=== PATIENT | female | born 1985 | race Caucasian/White ===

== ENCOUNTER 2018-07-05 15:56 | Emergency (ER) | payer OTHER ==
--- NOTE | 2018-07-05 16:45 | EDPHY ---
H & P Time Seen by Provider: 07/05/18 16:44 HPI/ROS: CHIEF COMPLAINT: Abdominal pain HISTORY OF PRESENT ILLNESS: Patient is 6 weeks , 5 para 3. No previous abdominal surgeries. Started having right upper quadrant and right lower quadrant pain yesterday which is described as cramping and waxing and waning. She primarily feels it under her ribs on the right side, but more also has pain on the lower abdomen. No associated urinary symptoms or fever. No injury or trauma. No vaginal bleeding. Not better or worse with anything. REVIEW OF SYSTEMS: Eye: no change in vision ENT: no sore throat Cardiac: no chest pain or syncope Pulmonary: no cough or SOB Abdomen: HPI Musculoskeletal: no back pain Skin: no rash Neuro: no headache Constitutional: no fever : no urinary symptoms A comprehensive 10 point review of systems is otherwise negative aside from elements mentioned in the history of present illness. PAST MEDICAL HISTORY: 5 para 3; A positive in [employer] Social history: here with her General Appearance: Alert and conversant, cooperative. Eyes: No scleral icterus. ENT, Mouth: Normal mucous membranes. Respiratory: Normal respiratory effort, breath sounds equal, lungs are clear to auscultation. Cardiovascular: Regular rate and rhythm. Gastrointestinal: Right lower quadrant and left lower quadrant tenderness without rebound or guarding, negative Tran sign. Neurological: Alert, face symmetric, normal motor and sensory in extremities. Skin: Warm and dry, no rashes. Musculoskeletal: No peripheral edema. Psychiatric: Not agitated. Emergency Department course/MDM: Pulmonary embolism was considered but I think it is unlikely with no chest pain or shortness of breath, symptoms in the abdomen, 98% oxygen saturation, not pleuritic. Plan for ultrasound of ovary, appendix, gallbladder and labs. Urinalysis negative. 1813: 6+1 IUP Deirdre, 2.6cm L side subchorionic hemorrhage, no torsion. US shows normal GB, no abnormal in RLQ Leonard at 1816. 1900: Results discussed, she is eating soup and feels well. I think it is reasonable that her subchorionic hemorrhage is likely causing her symptoms. I think appendicitis at this time is unlikely. Smoking Status: Never smoked Constitutional: Initial Vital Signs Temperature (C) 37.2 C 07/05/18 16:00 Heart Rate 91 07/05/18 16:00 Respiratory Rate 16 07/05/18 16:00 Blood Pressure 122/73 H 07/05/18 16:00 O2 Sat (%) 98 07/05/18 16:00 O2 Delivery Mode Room Air Allergies/Adverse Reactions: cephalexin monohydrate [From Keflex] Allergy (Severe, Verified 07/05/18 15:59) Home Medications: Medication Instructions Recorded Sudhir Padilla 10-10 mg Tablet 07/05/18 07/05/18 Medical Decision Making - Diagnostics Imaging Results: Imaging Impressions Abdomen Ultrasound 07/05/18 16:53 Impression: Normal study. Results called to Dr. Kaz Menendez at 6:15 PM. Abdomen Ultrasound 07/05/18 16:53 Impression: No indirect sonographic evidence for appendicitis. Results called to Dr. Menendez at 6:15 PM. Obstetrics Ultrasound 07/05/18 16:53 Impression: 1. There is a single viable intrauterine gestation with size concordant with menstrual dating. 2. There is a 2.6 cm left-sided subchorionic hemorrhage. 3. Normal appearance of the ovaries. There is no adnexal mass, torsion, or free fluid. Findings were discussed with KAZ MENENDEZ MD at 18:12, on 07/05/2018. Imaging: Discussed imaging studies w/ photo tube assembler Radiologist - Data Points Laboratory Results: Laboratory Results 07/05/18 16:37 07/05/18 16:37 07/05/18 07/05/18 07/05/18 16:37 16:37 16:05 WBC 9.51 10^3/uL H 10^3/uL (3.80-9.50) RBC 4.97 10^6/uL 10^6/uL (4.18-5.33) Hgb 14.3 g/dL g/dL (12.6-16.3) Hct 43.1 % % (38.0-47.0) MCV 86.7 fL fL (81.5-99.8) MCH 28.8 pg pg (27.9-34.1) MCHC 33.2 g/dL g/dL (32.4-36.7) RDW 12.7 % % (11.5-15.2) Plt Count 191 10^3/uL 10^3/uL (150-400) MPV 10.2 fL fL (8.7-11.7) Neut % (Auto) 67.9 % % (39.3-74.2) Lymph % (Auto) 24.3 % % (15.0-45.0) Coffee % (Auto) 5.9 % % (4.5-13.0) Eos % (Auto) 1.4 % % (0.6-7.6) Baso % (Auto) 0.2 % L % (0.3-1.7) Nucleat RBC Rel Count 0.0 % % (0.0-0.2) Absolute Neuts (auto) 6.46 10^3/uL 10^3/uL (1.70-6.50) Absolute Lymphs (auto) 2.31 10^3/uL 10^3/uL (1.00-3.00) Absolute Monos (auto) 0.56 10^3/uL 10^3/uL (0.30-0.80) Absolute Eos (auto) 0.13 10^3/uL 10^3/uL (0.03-0.40) Absolute Basos (auto) 0.02 10^3/uL 10^3/uL (0.02-0.10) Absolute Nucleated RBC 0.00 10^3/uL 10^3/uL (0-0.01) Immature Gran % 0.3 % % (0.0-1.1) Immature Gran # 0.03 10^3/uL 10^3/uL (0.00-0.10) Sodium 136 mEq/L mEq/L (135-145) Potassium 3.6 mEq/L mEq/L (3.5-5.2) Chloride 103 mEq/L mEq/L (97-110) Carbon Dioxide 23 mEq/l mEq/l (22-31) Anion Gap 10 mEq/L mEq/L (6-14) BUN 14 mg/dL mg/dL (7-23) Creatinine 0.5 mg/dL L mg/dL (0.6-1.0) Estimated GFR > 60 Glucose 114 mg/dL H mg/dL (70-100) Calcium 9.4 mg/dL mg/dL (8.5-10.4) Total Bilirubin 0.3 mg/dL mg/dL (0.1-1.4) Conjugated Bilirubin 0.3 mg/dL mg/dL (0.0-0.5) Unconjugated Bilirubin 0.0 mg/dL mg/dL (0.0-1.1) AST 35 IU/L IU/L (14-46) ALT 60 IU/L H IU/L (9-52) Alkaline Phosphatase 58 IU/L IU/L (38-126) Total Protein 7.2 g/dL g/dL (6.3-8.2) Albumin 4.3 g/dL g/dL (3.5-5.0) Lipase 92 IU/L IU/L (23-300) Beta HCG, Quant 61565.00 mIU/mL H mIU/mL (0.00-4.83) Urine Color YELLOW Urine Appearance HAZY Urine pH 6.0 (5.0-7.5) Ur Specific [place] 1.023 (1.002-1.030) Urine Protein NEGATIVE (NEGATIVE) Urine Ketones NEGATIVE (NEGATIVE) Urine Blood NEGATIVE (NEGATIVE) Urine Nitrate NEGATIVE (NEGATIVE) Urine Bilirubin NEGATIVE (NEGATIVE) Urine Urobilinogen NEGATIVE EU EU (0.2-1.0) Ur Leukocyte Esterase NEGATIVE (NEGATIVE) Urine Glucose NEGATIVE (NEGATIVE) Departure - Departure Disposition: Home, Routine, Self-Care Clinical Impression: Subchorionic hemorrhage Qualifiers: Fetus number: single or unspecified fetus Trimester: first trimester Qualified Code(s): O41.8X10 - Other specified disorders of amniotic fluid and membranes, first trimester, not applicable or unspecified Condition: Good Instructions: Subchorionic Hemorrhage (ED) Additional Instructions: you had a 2.5 cm subchorionic hemorrhage on ultrasound Referrals: Danika Brewer PA [Primary Care Provider] - As per Instructions
[2018-07-05 17:01] LABS: PLATELET COUNT 191 10^3/uL (150-400)
[2018-07-05 19:25] VITALS: BP 107/73
== END 2018-07-05 19:25 | disposition home or self-care (01) ==
DX: O41.8X10 Other specified disorders of amniotic fluid and membranes, first trimester, not applicable or unspecified (principal); Z3A.01 Less than 8 weeks gestation of pregnancy

== ENCOUNTER 2018-07-09 17:22 | Emergency (ER) | payer OTHER ==
[2018-07-09] MEDS ORDERED: NS 1,000 ML IV ONE ×2 (17:41)
--- NOTE | 2018-07-09 17:43 | EDPHY ---
H & P Time Seen by Provider: 07/09/18 17:36 HPI/ROS: CHIEF COMPLAINT: Hyperemesis gravidarum HISTORY OF PRESENT ILLNESS: Patient is a 33-year-old female with 1 miscarriage at 8 weeks. She is currently 7 weeks gestational age. She has had trouble with hyperemesis gravidarum with her last 3 pregnancies. She is currently on diclegis and followed by her OBGYN. She states that she has gotten behind this week and has not been able to stay well-hydrated. She had a near syncopal episode today when getting out of a warm bath. No diarrhea. No fever. No traumatic injury. No vaginal bleeding or discharge. She states that she has had concentrated urine and today had a small amount of pain with urination. No abdominal pain or tenderness. Severity: Moderate Modifying factors: None REVIEW OF SYSTEMS: Constitutional: denies: chills, fever, recent illness, recent injury EENTM: denies: blurred vision, double vision, nose congestion Respiratory: denies: cough, shortness of breath Cardiac: denies: chest pain, irregular heart rate, lightheadedness, palpitations Gastrointestinal/Abdominal: See HPI Genitourinary: See HPI Musculoskeletal: denies: joint pain, muscle pain Skin: denies: lesions, rash, jaundice, bruising Neurological: denies: headache, numbness, paresthesia, tingling, dizziness, weakness Hematologic/Lymphatic: denies: blood clots, easy bleeding, easy bruising Immunologic/allergic: denies: HIV/AIDS, transplant 10 systems reviewed and negative except as noted EXAM: GENERAL: Well-appearing, well-nourished and in no acute distress. HEAD: Atraumatic, normocephalic. EYES: Pupils equal round and reactive to light, extraocular movements intact, sclera anicteric, conjunctiva are normal. ENT: TMs normal, nares patent, oropharynx clear without exudates. Moist mucous slightly dry. NECK: Normal range of motion, supple without lymphadenopathy or JVD. LUNGS: Breath sounds clear to auscultation bilaterally and equal. No wheezes rales or rhonchi. HEART: Regular rate and rhythm without murmurs, rubs or gallops. ABDOMEN: Soft, nontender, normoactive bowel sounds. No guarding, no rebound. No masses appreciated. BACK: No CVA tenderness, no spinal tenderness, step-offs or deformities EXTREMITIES: Normal range of motion, no pitting or edema. No clubbing or cyanosis. NEUROLOGICAL: Cranial nerves II through XII grossly intact. Normal speech, normal gait. 5/5 strength, normal movement in all extremities, normal sensation , normal reflexes PSYCH: Normal mood, normal affect. SKIN: Warm, dry, normal turgor, no visible rashes or lesions. Source: Patient, Family Exam Limitations: No limitations - Personal History Tetanus Vaccine Date: 01/19 - Medical/Surgical History Hx Asthma: No Hx Chronic Respiratory Disease: No Hx Diabetes: No Hx Cardiac Disease: No Hx Renal Disease: No Hx Cirrhosis: No Hx Alcoholism: No Hx HIV/AIDS: No Hx Splenectomy or Spleen Trauma: No Other PMH: - Family History Significant Family History: No pertinent family hx - Social History Smoking Status: Never smoked Alcohol Use: Sober Drug Use: None Constitutional: Initial Vital Signs Temperature (C) 37.3 C 07/09/18 17:33 Heart Rate 84 07/09/18 17:33 Respiratory Rate 12 07/09/18 17:33 Blood Pressure 115/90 H 07/09/18 17:33 O2 Sat (%) 98 07/09/18 17:33 O2 Delivery Mode Room Air Allergies/Adverse Reactions: cephalexin monohydrate [From Keflex] Allergy (Severe, Verified 07/09/18 17:43) Home Medications: Medication Instructions Recorded Diclegis Dr 10-10 mg Tablet 07/05/18 07/05/18 Medical Decision Making ED Course/Re-evaluation: 6:30 p.m. the patient is feeling well. She has received 1 L of fluid. 7:15 p.m. the patient is received her 2nd L of fluid. She continues to do well. No nausea currently. She states that she is ready to go home. No further treatment is desired at this time. Discussed occasions for returning. Urinalysis is unremarkable. Patient thinks that it was just slightly painful because she was dehydrated. Will observe and follow up with her primary. She has already taking Diclegis and does not wish to have other antibiotics. Differential Diagnosis: Partial list of the Differential diagnosis considered include but were not limited to; dehydration, hyperemesis gravidarum, urinary tract infection and although unlikely based on the history and physical exam, I also considered sepsis, miscarriage, hemorrhage. - Data Points Medications Given: Discontinued Medications Sodium Chloride (Ns) 1,000 mls @ 0 mls/hr IV EDNOW ONE; Wide Open PRN Reason: Protocol Stop: 07/09/18 17:42 Last Admin: 07/09/18 17:56 Dose: 1,000 mls Sodium Chloride (Ns) 1,000 mls @ 0 mls/hr IV EDNOW ONE; Wide Open PRN Reason: Protocol Stop: 07/09/18 17:42 Last Admin: 07/09/18 18:35 Dose: 1,000 mls Point of Care Test Results: Urine Dip Collection Date 07/09/18 Collection Time 18:59 Specific [place] (1.002-1.030) 1.020 PH (5.0-7.5) 7.0 Leukocytes (Negative) Negative Nitrites (Negative) Negative Protein (Negative) Negative Glucose (Negative) Negative Ketones (Negative) Negative Urobilnogen (0.2-1.0 EU) 0.2 Bilirubin (Negative) Negative Blood (Negative) Negative Departure - Departure Disposition: Home, Routine, Self-Care Clinical Impression: Hyperemesis gravidarum Condition: Fair Instructions: Hyperemesis Gravidarum (ED) Referrals: Danika Brewer PA [Primary Care Provider] - 2-3 days, call for appt.
[2018-07-09 19:59] VITALS: BP 117/88
== END 2018-07-09 20:02 | disposition home or self-care (01) ==
LOC: CED 17:22
DX: O21.0 Mild hyperemesis gravidarum (principal); E86.9 Volume depletion, unspecified; Z3A.01 Less than 8 weeks gestation of pregnancy
CPT/HCPCS: 96360-ER; 99284-ER

== ENCOUNTER 2018-07-18 12:50 | Emergency (ER) | payer OTHER ==
[2018-07-18 17:24] VITALS: BP 114/94
[2018-07-18 20:07] LABS: PLATELET COUNT 248 10^3/uL (150-400)
--- NOTE | 2018-07-19 05:34 | GCON ---
[f rep st] CONSULTATION EMERGENCY ROOM CONSULTATION DATE OF CONSULTATION: 07/18/2018 SERVICE: Obstetric Service. HISTORY: Upon consultation, the patient is a 33-year-old, G5, P3, A1, who presented to the emergency room with heavy bleeding and feeling lightheaded. The patient is in the process of trying to termin ate a and was seen by an office in [place] and took 4 pills of RU486 on the morning of 07/17 , and a repeat course of 4 pills on the morning of 07/18. She started having heavy bleeding and clot ting approximately 9:30 a.m. After several hours of heavy bleeding, the patient began feeling lighth eaded and presented to the emergency room. The patient reports ultrasound previous to current medica tion showed an intrauterine at 8 weeks 6 days. The patient reported soaking 1-2 pads an ho ur. Patient had a pelvic ultrasound while in the emergency room and had several clots during the ult rasound and was continuing to have approximately 1 pad an hour. The patient very hemodynamically sta ble and minimal symptoms of cramping. PAST MEDICAL HISTORY: Anxiety and depression. PAST SURGICAL HISTORY: Negative. PAST OBSTETRIC HISTORY: Three girls at home ranging from approximately 10 down to 2 years old. [facility] ent reports 3 uncomplicated vaginal deliveries at term. Also 8 years ago, an SAB. ALLERGIES: The patient has no drug allergies. CURRENT MEDICATIONS: Zoloft, Diclegis, ibuprofen, RU486. SOCIAL HISTORY: The patient is and her supportive is with her as well as lives at [facility] with 3 daughters. The patient is a nonsmoker, only social alcohol. FAMILY HISTORY: Noncontributory. PHYSICAL EXAM: The patient is a well-developed, well-nourished white female in no physical distress. Appears anxious. The patient has had tachycardia up to the 110s with currently heart rate in the h igh 80s to 90s. Blood pressure 141/77. Afebrile. See nursing documentation for full details. The computer has been down the whole time of the patient's visit in the emergency room. Ultrasound p ictures are reviewed on the PACS but the report is not available to be viewed. The endometrial cavit y is thick and hyperemic. There are areas that appear consistent with retained products of conceptio n. However, no definitive sac. Lab per emergency room doctor was a hemoglobin of 14. He reports bl ood type has not been checked and I asked him to obtain 1 prior to discharge. ASSESSMENT: Currently in process of a termination of an 8+ week with heavy bleeding today after RU486. Evidence that the has passed, but likely not all placental tissue. I discuss ed with the patient and her that likely her body will be able to complete the termination on her own at home. With her good health and normal baseline lab work, she will be able to tolerate hea vy bleeding for several hours. The patient is advised that sometimes the tissue does not fully separ ate and patients do need a D and C to alleviate continued heavy bleeding. The patient is given the o ption of performing the D and C at this time and the patient declines. She feels like she would rath er let her body do this naturally without surgery. PLAN: The patient is will have her blood type checked and then will be discharged home. She is to r eturn if she has lightheadedness or syncope. Continue to hydrate well at home and use ibuprofen as n eeded for cramping. Advised her to follow back up with the provider's office in [place] for followup if needed. The patient states she is also planning to follow up with Dr. Dozeir to identify which cont raceptive she wants to proceed with. Approximately 20 minutes was spent with the patient and her and reviewing her films. /[id number]/MODL
--- NOTE | 2018-07-19 15:12 | EDPHY ---
H & P Time Seen by Provider: 07/18/18 13:00 HPI/ROS: HPI Vaginal bleeding. 33-year-old female by private vehicle with her . This patient is a A1. She had an intrauterine at 8 weeks. She took our you for 86 this morning. Since about 9:30 a.m. She has been experiencing crampy lower abdominal pain and bleeding through 1-2 pads per hour. She took 600 mg of Advil at 9:00 a.m.. ROS: Constitutional: No fever, no chills. No weakness. Eyes: No discharge. No changes in vision. ENT: No sore throat. No nasal congestion or rhinorrhea. Respiratory: No cough. No shortness of breath. Cardiac: No chest pain, no palpitations. Gastrointestinal: No abdominal pain, no vomiting, no diarrhea. Genitourinary: No dysuria or increased frequency with urination. As above. Musculoskeletal: No back pain. No neck pain. No myalgias or arthralgias. Skin: No rashes. Neurological: No headache. No focal weakness or altered sensation. Past medical history: Hyperemesis gravidarum with previous pregnancies. Social history: Nonsmoker. No alcohol. Here with her . Physical Exam: General Appearance: Alert, no distress. This patient is responding to questions appropriately and in full sentences. This patient appears well- hydrated and well-nourished. Eyes: Pupils equal and round no pallor or injection. No lid edema, erythema or injection. Respiratory: There are no retractions, lungs are clear to auscultation with good air movement bilaterally. Cardiovascular: Regular rate and rhythm. No murmur. Gastrointestinal: Abdomen is soft with vague and mild suprapubic tenderness on palpation, no masses, bowel sounds normal. No focal tenderness at McBurney's point. No Tran sign. Neurological: Motor sensory function is grossly intact. Cranial nerves are normal. Gait is normal. Skin: Warm and dry, no rashes. Musculoskeletal: Neck is supple and nontender. Extremities are symmetrical. All joints range without pain or impingement. Psychiatric: No agitation. No depression. Database: EKG: Imaging: Pelvic ultrasound significant for a thickened hyperemic endometrium. Otherwise unremarkable. Results were discussed with staff radiologist Dr. Jesus Gilmore. Procedures: Emergency department course: Triage vital signs reviewed and are normal. Patient sent for ultrasound as above. After review of ultrasound results and discussion of these results with the patient and her I consulted with on-call OBGYN Dr. Angelito Campbell at 3: 45 p.m.. She came down to the emergency department and evaluated the patient. She felt the patient was safe for discharge to home which is what the patient would like to do. She provided her with follow-up instructions. I discussed return to emergency department precautions. All of the patient's questions were answered. The patient's vital signs have been normal throughout her emergency department course. She has a hematocrit of 46.4. She was discharged in good condition with her . Differential Diagnosis: The differential diagnosis on this patient includes but is not limited to induce miscarriage, incomplete miscarriage. Ectopic , spontaneous miscarriage unlikely. This represents a partial list of diagnoses considered. These considerations are based on history, physical exam, past history, reassessment and diagnostic testing. Smoking Status: Never smoked Constitutional: Initial Vital Signs Temperature (C) 36.9 C 07/18/18 17:15 Heart Rate 70 07/18/18 17:15 Respiratory Rate 16 07/18/18 17:15 Blood Pressure 104/72 07/18/18 17:15 O2 Sat (%) 96 07/18/18 17:15 O2 Delivery Mode Room Air Allergies/Adverse Reactions: cephalexin monohydrate [From Keflex] Allergy (Severe, Verified 07/09/18 17:43) Home Medications: Medication Instructions Recorded Sudhir Padilla 10-10 mg Tablet 07/05/18 07/05/18 Medical Decision Making - Diagnostics Imaging Results: Imaging Impressions Pelvic/Renal Ultrasound 07/18/18 13:28 Impression: Abnormal heterogeneous endometrial thickening with some hyperemia, suggestive of retained products of conception. There is no viable intrauterine . Findings were discussed with Lyla Newman M.D. at 15:18, on 07/18/2018. Patient: Keisha Ambrose : 1985. - Data Points Laboratory Results: Laboratory Results 07/18/18 17:01 07/18/18 17:01 Departure - Departure Disposition: Home, Routine, Self-Care Clinical Impression: Miscarriage Condition: Good Instructions: Miscarriage (ED) Additional Instructions: Read and follow provided instructions. Follow-up with OBGYNDr. Campbell in 1-2 days for re-evaluation. Ibuprofen dosin mg every 6 hours with meals for the next 3 days only. Take only as needed for pain. Return to the emergency department for worsening symptoms, worsening bleeding, pain, lightheadedness or other serious concerns. Referrals: Linda Campbell MD [Medical Doctor] - As per Instructions
== END 2018-07-18 17:15 | disposition home or self-care (01) ==
DX: O03.9 Complete or unspecified spontaneous abortion without complication (principal); Z3A.08 8 weeks gestation of pregnancy